=== PATIENT | male | born 1995 | race African-American/Black ===

== ENCOUNTER 2016-11-19 14:09 | Emergency (ER) | payer OTHER ==
[~2016-11-19] VITALS: Ht 182.9 cm; Wt 83.5 kg
[2016-11-19 14:36] VITALS: Ht 182.9 cm; Wt 83.5 kg
[2016-11-19] MEDS ORDERED: CEPH-443 PO (14:42)
--- NOTE | 2016-11-19 15:03 | ERD ---
ER Documentation Chief Complaint Date/Time DATE: 11/19/16 TIME: 15:00 Chief Complaint SPIDER BITE O RIGHT KNEE.REDNESS HPI 21-year-old male presents to the emergency department complaining of a spider bite to the right lateral knee that he has noticed today. Patient states that the lesion mildly itchy, he complains of redness and mild swelling patient denies taking any medications for this. ROS All systems reviewed and are negative except as per history of present illness. Medications Home Meds Active Scripts Cephalexin* (Keflex*) 500 Mg Capsule, 500 MG PO QID for 5 Days, CAP Prov:WANDER GARCIA PA-C 11/19/16 Physical Exam Vitals Vital Signs Date Time Temp Pulse Resp B/P Pulse Ox O2 Delivery O2 Flow Rate FiO2 11/19/16 14:36 97.3 74 18 124/72 98 Physical Exam General: WD/WN, in no apparent distress, non-toxic appearing HENT: NC/AT Eyes: Conjunctiva normal Neck: Supple Pulm: Clear to auscultation, normal labored breathing; no wheezing/rales/ rhonchi heard CV: Good capillary refill GI: Non-distended, no guarding Back: No masses Ext: No clubbing, cyanosis, or edema, patient had full range of motion of the right knee Neuro: Moves on all fours Skin: Erythematous papule to the right lateral knee with mild erythema surrounding the lesion, no induration or purulence noted Psych: Normal mood Procedures/MDM This is a 21-year-old male presenting to the emergency department with a spider bite to the right lateral knee, this appears to be an inflammatory response to the spider bite however I will empirically treat for possible early cellulitis since the redness has been increasing. I doubt septic arthritis, lymphangitis, osteomyelitis. Patient appears well and stable for discharge for home. Prescription for Keflex was provided. I discussed with him return to the ER for any worsening signs or symptoms. He understands and agrees with plan Departure Diagnosis: Primary Impression: Infected insect bite Condition: Stable Patient Instructions: Insect Sting/Bite, Infected Additional Instructions: FOLLOW UP WITH YOUR PRIMARY CARE PHYSICIAN TOMORROW.Return to this facility if you are not improving as expected. Take all medicines as directed. Return to this facility if you are not improving as expected. WANDER GARCIA PA-C Nov 19, 2016 15:03
== END 2016-11-19 14:44 | disposition home or self-care (01) ==
LOC: E/R 14:09
DX: T63.301A Toxic effect of unspecified spider venom, accidental (unintentional), initial encounter (principal); L08.9 Local infection of the skin and subcutaneous tissue, unspecified
CPT/HCPCS: 99283

== ENCOUNTER 2017-09-19 09:29 | Emergency (ER) | END 2017-09-19 13:30 | disposition home or self-care (01) ==